=== PATIENT | male | born 2000 | race Caucasian/White ===

== ENCOUNTER 2020-03-23 17:00 | Inpatient (IN) ==
--- NOTE | 2020-03-23 17:14 | Emergency Department Note ---
History of Present Illness General Chief complaint: Urinary Symptoms Stated complaint: BROWN URINE - SORE MUSCLES Time Seen by Provider: 03/23/20 17:03 History of Present Illness Maximum Pain Intensity: 8 This is a 20-year-old male that presents to the emergency department via private vehicle with complaints of "brown urine, muscle ache". Patient notes that he participated in an intense workout this past . He notes that he perform any push-ups. Prior to that he had not worked out for quite some time. He was sore but then when he awoke the next day on Tuesday he noted a large amount of soreness within the biceps that has progressively moved towards the pectoralis region. The overall soreness is improving but today he notes now his urine is brown. He researched this and was concerned about rhabdomyolysis therefore prompting arrival here today. He denies any fevers, chills, chest pain or shortness of breath. Overall discomfort at this time is minimal. Home Medications Medication Instructions Recorded Confirmed Type No Known Home Medications 03/23/20 03/23/20 History Allergies Allergy/AdvReac Type Severity Reaction Status Date / Time No Known Allergies Allergy Verified 03/23/20 17:45 Past Med/Surg History Medical History No pertinent past medical history Surgical History No pertinent past surgical history Social History Smoking Status: Never smoker Feels Safe at Home: Yes Review of Systems A total of 10 systems reviewed and were otherwise negative Physical Exam Vital Signs Vital Signs - 24 hr 03/23/20 17:03 03/23/20 17:51 03/23/20 19:00 Temperature 36.5 C Temperature Source Oral Pulse Rate 87 Pulse Rate [Left Finger] 87 87 Respiratory Rate 16 18 18 Respiratory Effort / Characteristics Non-Labored Respiratory Depth Normal Blood Pressure 156/104 H Blood Pressure [Left Arm] 136/82 143/73 H Blood Pressure Mean 121 Blood Pressure Mean [Left Arm] 100 96 Pulse Oximetry 94 99 98 Oxygen Delivery Method Room Air Room Air Room Air Sepsis Recent Fever Within 48 Hours No Sepsis New/Unexplained Change in Mental Status N/A Sepsis Action Taken by Nursing No Action Required 03/23/20 20:32 Temperature Temperature Source Pulse Rate Pulse Rate [Left Finger] 88 Respiratory Rate 14 Respiratory Effort / Characteristics Respiratory Depth Normal Blood Pressure Blood Pressure [Left Arm] 134/97 Blood Pressure Mean Blood Pressure Mean [Left Arm] 109 Pulse Oximetry 98 Oxygen Delivery Method Room Air Sepsis Recent Fever Within 48 Hours Sepsis New/Unexplained Change in Mental Status Sepsis Action Taken by Nursing VITAL SIGNS - Vital signs and nursing notes were reviewed. Stable and afebrile. GENERAL -20-year-old male appearing his stated age who is in no acute distress. Communicates well with provider and answers questions appropriately. SKIN - Without rashes. No meningeal or petechial rash. HEAD - NC/AT. EYES - PERRL with EOMI bilaterally. Sclera anicteric. EARS - No deformities of external structures noted on gross examination bilaterally. NOSE - Midline and without cyanosis. No epistaxis or purulent drainage noted. MOUTH/OROPHARYNX - Without perioral cyanosis. NECK - Neck with FROM. No nuchal rigidity. LUNGS - Chest wall symmetric without accessory muscle use, intercostals retractions, or central cyanosis. Normal vesicular breath sounds CTA B/L. No wheezes, rales, or rhonchi appreciated. CARDIAC - RRR with S1/S2. No murmur, rubs, or gallops appreciated. EXTREMITIES - No clubbing or peripheral cyanosis. No pretibial edema present. Mild tenderness overlying the lateral pectoralis region and triceps. No evidence of compartment syndrome. +5/5 strength noted in UE/LE bilaterally. NEUROLOGIC - Cranial nerves II through XII grossly intact. PSYCH - A&Ox3 and cooperates fully with examiner. Pt is very pleasant and interacts well with examiner. Course Administered Medications Discontinued Medications Sodium Chloride (Nss 1000ml) 1,000 mls @ 999 mls/hr IV .Q1H1M MARK Stop: 03/23/20 18:15 Last Infusion: 03/23/20 18:44 Dose: 0 mls/hr Documented by: [id number] Admin: 03/23/20 17:43 Dose: 999 mls/hr Documented by: [id number] Sodium Chloride (Nss 1000ml) 1,000 mls @ 999 mls/hr IV .Q1H1M MARK Stop: 03/23/20 19:45 Last Infusion: 03/23/20 19:52 Dose: 0 mls/hr Documented by: [id number] Admin: 03/23/20 18:51 Dose: 999 mls/hr Documented by: [id number] Sodium Chloride (Nss) 500 mls @ 250 mls/hr IV .Q2H MARK Stop: 04/22/20 21:14 Last Admin: 03/23/20 22:10 Dose: 250 mls/hr Documented by: [id number] Medical Decision Making Laboratory Data Result diagrams: 03/23/20 17:35 03/23/20 17:35 Lab Results 03/23/20 03/23/20 03/23/20 Range/Units 17:35 17:35 17:35 WBC 9.56 (4.8-10.8) K/uL RBC 5.35 (4.7-6.1) M/uL Hgb 16.1 (14.0-18.0) g/dL Hct 44.6 (42-52) % MCV 83.4 (80-100) fL MCH 30.1 (25-34) pg MCHC 36.1 H (32-36) g/dL RDW Std Deviation 38.6 (36.4-46.3) fL RDW Coeff of Kenny 12.9 (11.5-14.5) % Plt Count 223 (130-400) K/uL MPV 10.8 H (7.4-10.4) fL Immature Gran % (Auto) 0.3 % Neut % (Auto) 65.4 % Lymph % (Auto) 25.4 % Nash % (Auto) 6.5 % Eos % (Auto) 2.3 % Baso % (Auto) 0.1 % Neut # (Auto) 6.25 (1.4-6.5) K/uL Lymph # (Auto) 2.43 (1.2-3.4) K/uL Nash # (Auto) 0.62 H (0.11-0.59) K/uL Eos # (Auto) 0.22 (0-0.5) K/uL Baso # (Auto) 0.01 (0-0.2) K/uL Immature Gran # (Auto) 0.03 H (0.00-0.02) K/uL PT (9.0-12.0) Seconds INR (0.9-1.1) APTT (21.0-31.0) Seconds PTT Ratio Sodium 138 (136-145) mmol/L Potassium 3.7 (3.5-5.1) mmol/L Chloride 105 (98-107) mmol/L Carbon Dioxide 25 (21-32) mmol/L Anion Gap 8.0 (3-11) BUN 16 (7-18) mg/dl Creatinine 1.29 (0.6-1.4) mg/dl Est Cr Clr Drug Dosing 89.8 ml/min Est GFR ( Amer) 90.6 Est GFR (Non-Af Amer) 78.2 BUN/Creatinine Ratio 12.6 (10-20) Glucose 105 H (70-99) mg/dl Calcium 9.5 (8.5-10.1) mg/dl Total Bilirubin 0.5 (0.2-1) mg/dl AST 1426 H (15-37) U/L ALT 313 H (12-78) U/L Alkaline Phosphatase 49 (45-117) U/L Total Creatine Kinase (39-308) U/L Total Protein 7.5 (6.4-8.2) gm/dl Albumin 4.0 (3.4-5.0) gm/dl Globulin 3.5 (2.5-4.0) gm/dl Albumin/Globulin Ratio 1.1 (0.9-2) Specimen Hemolysis Urine Color Yellow Urine Appearance Clear (Clear) Urine pH 5.5 (4.5-7.5) Ur Specific [place] 1.008 (1.000-1.030) Urine Protein Trace H (Negative) Urine Glucose (UA) Negative (Negative) Urine Ketones Negative (Negative) Urine Blood 3+ H (Negative) Urine Nitrite Negative (Negative) Urine Bilirubin Negative (Negative) Urine Urobilinogen Negative (Negative) Ur Leukocyte Esterase Negative (Negative) Urine WBC (Auto) 0 (0-5) /hpf Urine RBC (Auto) 0-4 (0-4) /hpf U Hyaline Cast (Auto) 0 (0-5) /lpf U Epithel Cells (Auto) 0-5 (0-5) /lpf Urine Bacteria (Auto) Negative (Negative) COVID-19 Eval Order SARS-CoV-2, RNA, NAAT (NEGATIVE) 03/23/20 03/23/20 03/23/20 Range/Units 17:45 19:08 20:34 WBC (4.8-10.8) K/uL RBC (4.7-6.1) M/uL Hgb (14.0-18.0) g/dL Hct (42-52) % MCV (80-100) fL MCH (25-34) pg MCHC (32-36) g/dL RDW Std Deviation (36.4-46.3) fL RDW Coeff of Kenny (11.5-14.5) % Plt Count (130-400) K/uL MPV (7.4-10.4) fL Immature Gran % (Auto) % Neut % (Auto) % Lymph % (Auto) % Nash % (Auto) % Eos % (Auto) % Baso % (Auto) % Neut # (Auto) (1.4-6.5) K/uL Lymph # (Auto) (1.2-3.4) K/uL Nash # (Auto) (0.11-0.59) K/uL Eos # (Auto) (0-0.5) K/uL Baso # (Auto) (0-0.2) K/uL Immature Gran # (Auto) (0.00-0.02) K/uL PT 10.7 (9.0-12.0) Seconds INR 1.1 (0.9-1.1) APTT 25.4 (21.0-31.0) Seconds PTT Ratio 1.0 Sodium (136-145) mmol/L Potassium (3.5-5.1) mmol/L Chloride (98-107) mmol/L Carbon Dioxide (21-32) mmol/L Anion Gap (3-11) BUN (7-18) mg/dl Creatinine (0.6-1.4) mg/dl Est Cr Clr Drug Dosing ml/min Est GFR ( Amer) Est GFR (Non-Af Amer) BUN/Creatinine Ratio (10-20) Glucose (70-99) mg/dl Calcium (8.5-10.1) mg/dl Total Bilirubin (0.2-1) mg/dl AST (15-37) U/L ALT (12-78) U/L Alkaline Phosphatase (45-117) U/L Total Creatine Kinase > 495582 H (39-308) U/L Total Protein (6.4-8.2) gm/dl Albumin (3.4-5.0) gm/dl Globulin (2.5-4.0) gm/dl Albumin/Globulin Ratio (0.9-2) Specimen Hemolysis Urine Color Urine Appearance (Clear) Urine pH (4.5-7.5) Ur Specific [place] (1.000-1.030) Urine Protein (Negative) Urine Glucose (UA) (Negative) Urine Ketones (Negative) Urine Blood (Negative) Urine Nitrite (Negative) Urine Bilirubin (Negative) Urine Urobilinogen (Negative) Ur Leukocyte Esterase (Negative) Urine WBC (Auto) (0-5) /hpf Urine RBC (Auto) (0-4) /hpf U Hyaline Cast (Auto) (0-5) /lpf U Epithel Cells (Auto) (0-5) /lpf Urine Bacteria (Auto) (Negative) COVID-19 Eval Order Covid19 IDNow atMNDC SARS-CoV-2, RNA, NAAT (NEGATIVE) 03/23/20 Range/Units 20:34 WBC (4.8-10.8) K/uL RBC (4.7-6.1) M/uL Hgb (14.0-18.0) g/dL Hct (42-52) % MCV (80-100) fL MCH (25-34) pg MCHC (32-36) g/dL RDW Std Deviation (36.4-46.3) fL RDW Coeff of Kenny (11.5-14.5) % Plt Count (130-400) K/uL MPV (7.4-10.4) fL Immature Gran % (Auto) % Neut % (Auto) % Lymph % (Auto) % Nash % (Auto) % Eos % (Auto) % Baso % (Auto) % Neut # (Auto) (1.4-6.5) K/uL Lymph # (Auto) (1.2-3.4) K/uL Nash # (Auto) (0.11-0.59) K/uL Eos # (Auto) (0-0.5) K/uL Baso # (Auto) (0-0.2) K/uL Immature Gran # (Auto) (0.00-0.02) K/uL PT (9.0-12.0) Seconds INR (0.9-1.1) APTT (21.0-31.0) Seconds PTT Ratio Sodium (136-145) mmol/L Potassium (3.5-5.1) mmol/L Chloride (98-107) mmol/L Carbon Dioxide (21-32) mmol/L Anion Gap (3-11) BUN (7-18) mg/dl Creatinine (0.6-1.4) mg/dl Est Cr Clr Drug Dosing ml/min Est GFR ( Amer) Est GFR (Non-Af Amer) BUN/Creatinine Ratio (10-20) Glucose (70-99) mg/dl Calcium (8.5-10.1) mg/dl Total Bilirubin (0.2-1) mg/dl AST (15-37) U/L ALT (12-78) U/L Alkaline Phosphatase (45-117) U/L Total Creatine Kinase (39-308) U/L Total Protein (6.4-8.2) gm/dl Albumin (3.4-5.0) gm/dl Globulin (2.5-4.0) gm/dl Albumin/Globulin Ratio (0.9-2) Specimen Hemolysis Urine Color Urine Appearance (Clear) Urine pH (4.5-7.5) Ur Specific [place] (1.000-1.030) Urine Protein (Negative) Urine Glucose (UA) (Negative) Urine Ketones (Negative) Urine Blood (Negative) Urine Nitrite (Negative) Urine Bilirubin (Negative) Urine Urobilinogen (Negative) Ur Leukocyte Esterase (Negative) Urine WBC (Auto) (0-5) /hpf Urine RBC (Auto) (0-4) /hpf U Hyaline Cast (Auto) (0-5) /lpf U Epithel Cells (Auto) (0-5) /lpf Urine Bacteria (Auto) (Negative) COVID-19 Eval Order SARS-CoV-2, RNA, NAAT NEGATIVE (NEGATIVE) MDM Narrative Patient was seen and evaluated as above in room A3. Review was performed of nursing notes and vital signs. After obtaining a thorough history and physical examination the above work up was performed. Patient presents to us today over concerns of rhabdomyolysis. Patient notes that he did participate in an intense workout this past . He had not worked out much prior to this in the recent past. On arrival he is nontoxic on examination. There is some tende rness to palpation overlying the triceps bilaterally and anterior chest region. With the patient noting today a dark discoloration to the urine I certainly agree with the patient's concern of rhabdomyolysis and therefore work-up began for such. IV access was established. Labs were drawn. Pending laboratory studies he was hydrated here intravenously. There is no leukocytosis or concerning anemia. No evidence of kidney failure. The patient does have elevation of AST and ALT as well as a total CK that is unfortunately greater than 100,000. This will require further evaluation and management in the inpatient setting. This does fit with the patient's clinical picture. Urinalysis does reveal trace protein, 3+ blood consistent with presentation. Covid testing negative. Case discussed with the attending physician, the hospitalist, as well as the patient's mother via phone after offering to speak with her and the patient consenting. All questions were answered. Patient happy with plan of care. While in the department, I personally reevaluated the patient several times and each time the patient was found to be resting comfortably. GCS: 15 In the evaluation and treatment of this patient the following differential diagnoses were entertained: Strain, sprain, rhabdomyolysis, Tylenol overdose, liver failure, dehydration, among others. Impression & Plan Rhabdomyolysis, Elevated LFTs Discharge Plan Visit Data Chief Complaint: Urinary Symptoms Stated Complaint: BROWN URINE - SORE MUSCLES ED Provider: Anthony Jackson ED Midlevel Provider: Valdez Ortega Discharge Problem: Rhabdomyolysis, Elevated LFTs Patient Disposition: Admitted As Inpatient Condition: Good Discharge Instructions Interventions: ED Discharge Assessment Last Done: 03/23/20 22:34
[2020-03-23] MEDS ORDERED: SODIUM CHLORIDE 0.9% 1000ML 1,000 ML IV SCH ×2 (17:15→18:45)
[2020-03-23 17:49] LABS: Basophils # (auto) 0.01 K/uL (0-0.2); Basophils % (auto) 0.1 %; Eosinophils # (auto) 0.22 K/uL (0-0.5); Eosinophils % (auto) 2.3 %; Hematocrit (blood only) 44.6 % (42-52); Hemoglobin 16.1 g/dL (14.0-18.0); Immature Granulocytes # (auto) 0.03 K/uL (0.00-0.02); Immature Granulocytes % (auto) 0.3 %; Lymphocytes # (auto) 2.43 K/uL (1.2-3.4); Lymphocytes % (auto) 25.4 %; Mean Corpuscular Hemoglobin 30.1 pg (25-34); Mean Corpuscular Hgb Conc 36.1 g/dL (32-36); Mean Corpuscular Volume 83.4 fL (80-100); Mean Platelet Volume 10.8 fL (7.4-10.4); Monocytes # (auto) 0.62 K/uL (0.11-0.59); Monocytes % (auto) 6.5 %; Neutrophils # (auto) 6.25 K/uL (1.4-6.5); Neutrophils % (auto) 65.4 %; Platelet Count 223 K/uL (130-400); RDW Coefficient of Variation 12.9 % (11.5-14.5); RDW Standard Deviation 38.6 fL (36.4-46.3); Red Blood Count 5.35 M/uL (4.7-6.1); White Blood Count 9.56 K/uL (4.8-10.8)
[2020-03-23 17:50] LABS: Appearance Urine Clear (Clear); Bacteria Urine Automated Negative (Negative); Bilirubin Urine Negative (Negative); Blood Urine 3+ (Negative); Cast Urine Automated 0 /lpf (0-5); Color Urine Yellow; Epithelial Cell Urine Auto 0-5 /lpf (0-5); Glucose Urine UA Negative (Negative); Ketones Urine Negative (Negative); Leukocyte Esterase Urine Negative (Negative); Nitrite Urine Negative (Negative); Protein Urine Trace (Negative); RBC Urine Automated 0-4 /hpf (0-4); Specific Gravity Urine 1.008 (1.000-1.030); Urobilinogen Urine Negative (Negative); WBC Urine Automated 0 /hpf (0-5); pH Urine 5.5 (4.5-7.5)
[2020-03-23 18:11] LABS: BUN Creatinine Ratio 12.6 (10-20); Calcium 9.5 mg/dl (8.5-10.1); Creatinine Clr Calc Pharmacy 89.8 ml/min; Est GFR (African American) 90.6; Est GFR (Non-African American) 78.2; Potassium 3.7 mmol/L (3.5-5.1)
[2020-03-23 18:45] LABS: Albumin Globulin Ratio 1.1 (0.9-2); Bilirubin,Total 0.5 mg/dl (0.2-1); Globulin 3.5 gm/dl (2.5-4.0); Total Protein 7.5 gm/dl (6.4-8.2)
[2020-03-23 21:00] LABS: INR 1.1 (0.9-1.1); Partial Thromboplastin Time 25.4 Seconds (21.0-31.0); Prothrombin Time 10.7 Seconds (9.0-12.0)
--- NOTE | 2020-03-23 21:06 | History & Physical Report ---
Date of Service March 23, 2020 Assessment & Plan (1) Rhabdomyolysis: 20-year-old male no significant past medical history admitted for rhabdomyolysis with elevated LFTs. Rhabdomyolysis: CK > 100,000 on admission labs. Aggressive fluid resuscitation, NSS @ 250cc/hr, titrate to urine output. Repeat CBC, CMP, CK in the morning. Continue to monitor for signs of compartment syndrome. Continuous cardiac monitoring. In sinus rhythm since arrival to ER. Elevated LFTs: On admission with AST 1426, ALT 313, normal total bilirubin and alk phos. This is likely in the setting of acute rhabdomyolysis, continue to trend and if not continuing to improve can consider further work-up. CODE STATUS: Full code FEN/GI: Regular diet, NSS at 250 cc/hr DVT prophylaxis: Low risk given age, ad toyin. as tolerated and SCDs in bed Dispo: Medical floor with telemetry for continuous cardiac monitoring in the setting of acute rhabdomyolysis (2) Elevated LFTs: History of Present Illness Chief Complaint: Muscle aches, brown urine Primary Care Provider: [facility] 20-year-old male with no significant past medical history presents for muscle aches since with notes of brown urine this morning. Reports that on he did several reps of [place] [id number] [place]. Woke up the following morning sore in his arms and pec area. This morning woke up with brown color to his urine and worsening muscle aches, prompting his ER evaluation. He admits that this was the first workout he had done in several months due to COVID-19 pandemic. He does not endorse use of any supplements. In the ER, patient was found to have elevated LFTs, CK > 100,000, creatinine 1.29, normal coags. On interview patient denies chest pain, shortness of breath, nausea or vomiting, diarrhea, dysuria, dizziness or lightheadedness, headache. Allergies Allergy/AdvReac Type Severity Reaction Status Date / Time No Known Allergies Allergy Verified 03/23/20 17:45 Home Medications Medication Instructions Recorded Confirmed Type No Known Home Medications 03/23/20 03/23/20 History Past Med/Surg History Medical History No pertinent past medical history Surgical History No pertinent past surgical history Social History Smoking Status: Unknown if ever smoked Hx Alcohol Use: No Hx Substance Use: No Preferred Language: Estonian Communication Ability: Effective Finishing Range Feeder Required: No Beliefs That Will Affect Care: None Current Living Situation: Alone Feels Safe at Home: Yes Assistive Devices: None Review of Systems Review of Systems: All systems reviewed & are unremarkable except as noted in HPI & below Constitutional: no fever, no chills and no malaise Respiratory: no cough and no dyspnea Cardiovascular: no chest pain, no palpitations and no edema Gastrointestinal: no abdominal pain, no constipation and no diarrhea/loose stools Physical Exam Constitutional: WD/WN, vitals as above Eyes: PERRL, conjunctivae normal, anicteric sclerae ENMT: external ear and nose normal, oropharynx normal Neck: normal visual inspection Respiratory: normal respiratory effort, lungs clear to auscultation Cardiovascular: RRR, no murmur, no edema Gastrointestinal (Abdomen): normal bowel sounds, soft, nontender, no hepatosplenomegaly Musculoskeletal: no cyanosis or clubbing, extremities motor strength 5/5 Skin: no rashes, warm and dry (No findings on exam suggestive of compartment syndrome) Neurologic: AAOx3, normal speech. Bilateral UE, LE, and face without sensory or motor deficits. No tremor. Psychiatric: A+Ox3, euthymic affect Results & Data Results & Data ([facility] [place]) Vital Signs (Past 12 Hours) Vital Signs Temp Pulse Pulse Resp BP BP Pulse Ox 03/23/20 20:32 88 14 134/97 98 03/23/20 19:00 87 18 143/73 H 98 03/23/20 17:51 87 18 136/82 99 03/23/20 17:03 36.5 C 87 16 156/104 H 94 Code Status & VTE Plan VTE Prophylaxis Plan VTE Prophylaxis will be ordered: Yes Supervising Physician Co-Signing Physician Notes Attending addendum: I have physically seen this patient, have supervised the medical residents activities, and agree with the H&P unless as otherwise noted. Assessment and Plan: Rhabdomyolysis- CK >100,000 upon admission Continue IV fluid rehydration with NSS at 250 cc/h Follow serial CMP, magnesium and CK levels. Transaminitis- Likely secondary to rhabdomyolysis. AST 1426, ALT 313 upon admission. Follow serial laboratories with rehydration Remaining orders and notations as noted Resident Activity Tracking Resident Involvement: Resident Care Provided Care Provided: Adult [facility]
[2020-03-23] MEDS: SODIUM CHLORIDE 0.9% 500 ML IV SCH (22:10)
[2020-03-23] MEDS ORDERED: ONDANSETRON INJ 2 MG/ML 2 ML VIAL IV PRN (23:31)
[2020-03-24] MEDS ORDERED: Nursing to Pharmacy Communication SCH (00:15)
[2020-03-24] MEDS: SODIUM CHLORIDE 0.9% 500 ML IV SCH (02:08)
[2020-03-24] MEDS: SODIUM CHLORIDE 0.9% 1000ML 1,000 ML IV SCH ×6 (02:40→22:10)
[2020-03-24 06:15] LABS: Hematocrit (blood only) 41.9 % (42-52); Hemoglobin 14.9 g/dL (14.0-18.0); Mean Corpuscular Hemoglobin 29.9 pg (25-34); Mean Corpuscular Hgb Conc 35.6 g/dL (32-36); Mean Corpuscular Volume 84.1 fL (80-100); Mean Platelet Volume 10.9 fL (7.4-10.4); Platelet Count 204 K/uL (130-400); RDW Coefficient of Variation 12.9 % (11.5-14.5); RDW Standard Deviation 39.2 fL (36.4-46.3); Red Blood Count 4.98 M/uL (4.7-6.1); White Blood Count 7.46 K/uL (4.8-10.8)
[2020-03-24 06:28] LABS: INR 1.1 (0.9-1.1); Prothrombin Time 10.9 Seconds (9.0-12.0)
[2020-03-24 06:48] LABS: Albumin Level 3.5 gm/dl (3.4-5.0); Creatinine Clr Calc Pharmacy 120.7 ml/min; Est GFR (African American) 129.5; Est GFR (Non-African American) 111.8; Potassium 3.9 mmol/L (3.5-5.1)
[2020-03-24 07:28] LABS: Albumin Globulin Ratio 1.2 (0.9-2); Bilirubin,Total 0.4 mg/dl (0.2-1); Globulin 2.8 gm/dl (2.5-4.0); Total Protein 6.3 gm/dl (6.4-8.2)
--- NOTE | 2020-03-24 08:10 | Hospitalist Progress Note ---
Date of Service March 24, 2020 Assessment & Plan (1) Rhabdomyolysis: 20-year-old male no significant past medical history admitted for rhabdomyolysis with elevated LFTs. Rhabdomyolysis: * CK > 100,000 on admission labs * Multiple NSS bolus * Repeat today with CK 92,448 * Continue NSS @ 250cc/hr * Encourage PO fluid intake * UO 0.89ml/kg/hr * No signs compartment syndrome currently -- continue to monitor * Consider downgrade to medical tomorrow as telemetry unremarkable, but will keep on overnight * Repeat CBC, CMP, CK in the morning. Elevated LFTs: * On admission with AST 1426, ALT 313, normal total bilirubin and alk phos. * Trending down as rhabdo improving -- AST 1206, ALT 291, alk phos 43 * Continue to monitor on AM labs * This is likely in the setting of acute rhabdomyolysis, continue to trend and if not continuing to improve can consider further work-up. DVT prophylaxis: Low risk given age -- encouraged ambulation SCDs while in bed Dispo: Medical floor with telemetry for continuous cardiac monitoring in the setting of acute rhabdomyolysis. continue inpatient stay (2) Elevated LFTs: Admission and Anticipated Discharge Date Admission Date: March 23, 2020 Subjective Patient evaluated this morning. Feeling well. Does have some muscle tightness/aching to shoulders (primarily right shoulder) with movements. No numbness/tingling currently. Not needing anything for pain. Eating/drinking without issue. Discussed pushing oral fluids. He is aware to have restrictions for exercise at discharge. Moving bowels. Urinating without issue. 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 No fever, chills, chest pain,shortness of breath at this time. 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 No need for note at this time but will need at discharge and will let us know if he needs anything prior to that. Review of Systems Review of Systems: All systems reviewed & are unremarkable except as noted in HPI & below Physical Exam Constitutional: WD/WN, vitals as above comfortable; no acute distress Eyes: + anicteric sclerae and PERRL Neck: normal visual inspection and trachea midline Respiratory: normal respiratory effort, lungs clear to auscultation Cardiovascular: RRR, no murmur, no edema Gastrointestinal (Abdomen): normal bowel sounds, soft, nontender, no hepatosplenomegaly Musculoskeletal: no cyanosis or clubbing, extremities motor strength 5/5 Skin: warm, dry Neurologic: moves all extremities and awake sensation intact Psychiatric: A+Ox3, euthymic affect Results & Data Results & Data ([facility]) Vital Signs (Past 12 Hours) Vital Signs Temp Pulse Resp BP Pulse Ox 03/24/20 07:28 36.5 C 74 18 126/78 97 03/24/20 03:01 36.8 C 77 18 123/75 98 03/23/20 22:08 88 18 143/81 H 98 03/23/20 20:32 88 14 134/97 98 Laboratory Results 03/24/20 03/24/20 03/24/20 Range/Units 05:54 05:54 05:54 WBC 7.46 (4.8-10.8) K/uL RBC 4.98 (4.7-6.1) M/uL Hgb 14.9 (14.0-18.0) g/dL Hct 41.9 L (42-52) % MCV 84.1 (80-100) fL MCH 29.9 (25-34) pg MCHC 35.6 (32-36) g/dL RDW Std Deviation 39.2 (36.4-46.3) fL RDW Coeff of Kenny 12.9 (11.5-14.5) % Plt Count 204 (130-400) K/uL MPV 10.9 H (7.4-10.4) fL Immature Gran % (Auto) % Neut % (Auto) % Lymph % (Auto) % Mcmullen % (Auto) % Eos % (Auto) % Baso % (Auto) % Neut # (Auto) (1.4-6.5) K/uL Lymph # (Auto) (1.2-3.4) K/uL Mcmullen # (Auto) (0.11-0.59) K/uL Eos # (Auto) (0-0.5) K/uL Baso # (Auto) (0-0.2) K/uL Immature Gran # (Auto) (0.00-0.02) K/uL PT 10.9 (9.0-12.0) Seconds INR 1.1 (0.9-1.1) APTT (21.0-31.0) Seconds PTT Ratio Sodium 143 (136-145) mmol/L Potassium 3.9 (3.5-5.1) mmol/L Chloride 111 H (98-107) mmol/L Carbon Dioxide 26 (21-32) mmol/L Anion Gap 6.0 (3-11) BUN 12 (7-18) mg/dl Creatinine 0.96 D (0.6-1.4) mg/dl Est Cr Clr Drug Dosing 120.7 ml/min Est GFR ( Amer) 129.5 Est GFR (Non-Af Amer) 111.8 BUN/Creatinine Ratio 12.0 (10-20) Glucose 86 (70-99) mg/dl Calcium 9.0 (8.5-10.1) mg/dl Total Bilirubin 0.4 (0.2-1) mg/dl AST 1206 H (15-37) U/L ALT 291 H (12-78) U/L Alkaline Phosphatase 43 L (45-117) U/L Total Creatine Kinase 22654 H (39-308) U/L Total Protein 6.3 L (6.4-8.2) gm/dl Albumin 3.5 (3.4-5.0) gm/dl Globulin 2.8 (2.5-4.0) gm/dl Albumin/Globulin Ratio 1.2 (0.9-2) Specimen Hemolysis Urine Color Urine Appearance (Clear) Urine pH (4.5-7.5) Ur Specific [place] (1.000-1.030) Urine Protein (Negative) Urine Glucose (UA) (Negative) Urine Ketones (Negative) Urine Blood (Negative) Urine Nitrite (Negative) Urine Bilirubin (Negative) Urine Urobilinogen (Negative) Ur Leukocyte Esterase (Negative) Urine WBC (Auto) (0-5) /hpf Urine RBC (Auto) (0-4) /hpf U Hyaline Cast (Auto) (0-5) /lpf U Epithel Cells (Auto) (0-5) /lpf Urine Bacteria (Auto) (Negative) COVID-19 Eval Order SARS-CoV-2, RNA, NAAT (NEGATIVE) 03/23/20 03/23/20 03/23/20 Range/Units 20:34 20:34 19:08 WBC (4.8-10.8) K/uL RBC (4.7-6.1) M/uL Hgb (14.0-18.0) g/dL Hct (42-52) % MCV (80-100) fL MCH (25-34) pg MCHC (32-36) g/dL RDW Std Deviation (36.4-46.3) fL RDW Coeff of Kenny (11.5-14.5) % Plt Count (130-400) K/uL MPV (7.4-10.4) fL Immature Gran % (Auto) % Neut % (Auto) % Lymph % (Auto) % Mcmullen % (Auto) % Eos % (Auto) % Baso % (Auto) % Neut # (Auto) (1.4-6.5) K/uL Lymph # (Auto) (1.2-3.4) K/uL Mcmullen # (Auto) (0.11-0.59) K/uL Eos # (Auto) (0-0.5) K/uL Baso # (Auto) (0-0.2) K/uL Immature Gran # (Auto) (0.00-0.02) K/uL PT (9.0-12.0) Seconds INR (0.9-1.1) APTT (21.0-31.0) Seconds PTT Ratio Sodium (136-145) mmol/L Potassium (3.5-5.1) mmol/L Chloride (98-107) mmol/L Carbon Dioxide (21-32) mmol/L Anion Gap (3-11) BUN (7-18) mg/dl Creatinine (0.6-1.4) mg/dl Est Cr Clr Drug Dosing ml/min Est GFR ( Amer) Est GFR (Non-Af Amer) BUN/Creatinine Ratio (10-20) Glucose (70-99) mg/dl Calcium (8.5-10.1) mg/dl Total Bilirubin (0.2-1) mg/dl AST (15-37) U/L ALT (12-78) U/L Alkaline Phosphatase (45-117) U/L Total Creatine Kinase > 696254 H (39-308) U/L Total Protein (6.4-8.2) gm/dl Albumin (3.4-5.0) gm/dl Globulin (2.5-4.0) gm/dl Albumin/Globulin Ratio (0.9-2) Specimen Hemolysis Urine Color Urine Appearance (Clear) Urine pH (4.5-7.5) Ur Specific [place] (1.000-1.030) Urine Protein (Negative) Urine Glucose (UA) (Negative) Urine Ketones (Negative) Urine Blood (Negative) Urine Nitrite (Negative) Urine Bilirubin (Negative) Urine Urobilinogen (Negative) Ur Leukocyte Esterase (Negative) Urine WBC (Auto) (0-5) /hpf Urine RBC (Auto) (0-4) /hpf U Hyaline Cast (Auto) (0-5) /lpf U Epithel Cells (Auto) (0-5) /lpf Urine Bacteria (Auto) (Negative) COVID-19 Eval Order Covid19 [facility] SARS-CoV-2, RNA, NAAT NEGATIVE (NEGATIVE) 03/23/20 03/23/20 03/23/20 Range/Units 17:45 17:35 17:35 WBC (4.8-10.8) K/uL RBC (4.7-6.1) M/uL Hgb (14.0-18.0) g/dL Hct (42-52) % MCV (80-100) fL MCH (25-34) pg MCHC (32-36) g/dL RDW Std Deviation (36.4-46.3) fL RDW Coeff of Kenny (11.5-14.5) % Plt Count (130-400) K/uL MPV (7.4-10.4) fL Immature Gran % (Auto) % Neut % (Auto) % Lymph % (Auto) % Mcmullen % (Auto) % Eos % (Auto) % Baso % (Auto) % Neut # (Auto) (1.4-6.5) K/uL Lymph # (Auto) (1.2-3.4) K/uL Mcmullen # (Auto) (0.11-0.59) K/uL Eos # (Auto) (0-0.5) K/uL Baso # (Auto) (0-0.2) K/uL Immature Gran # (Auto) (0.00-0.02) K/uL PT 10.7 (9.0-12.0) Seconds INR 1.1 (0.9-1.1) APTT 25.4 (21.0-31.0) Seconds PTT Ratio 1.0 Sodium 138 (136-145) mmol/L Potassium 3.7 (3.5-5.1) mmol/L Chloride 105 (98-107) mmol/L Carbon Dioxide 25 (21-32) mmol/L Anion Gap 8.0 (3-11) BUN 16 (7-18) mg/dl Creatinine 1.29 (0.6-1.4) mg/dl Est Cr Clr Drug Dosing 89.8 ml/min Est GFR ( Amer) 90.6 Est GFR (Non-Af Amer) 78.2 BUN/Creatinine Ratio 12.6 (10-20) Glucose 105 H (70-99) mg/dl Calcium 9.5 (8.5-10.1) mg/dl Total Bilirubin 0.5 (0.2-1) mg/dl AST 1426 H (15-37) U/L ALT 313 H (12-78) U/L Alkaline Phosphatase 49 (45-117) U/L Total Creatine Kinase (39-308) U/L Total Protein 7.5 (6.4-8.2) gm/dl Albumin 4.0 (3.4-5.0) gm/dl Globulin 3.5 (2.5-4.0) gm/dl Albumin/Globulin Ratio 1.1 (0.9-2) Specimen Hemolysis Urine Color Yellow Urine Appearance Clear (Clear) Urine pH 5.5 (4.5-7.5) Ur Specific [place] 1.008 (1.000-1.030) Urine Protein Trace H (Negative) Urine Glucose (UA) Negative (Negative) Urine Ketones Negative (Negative) Urine Blood 3+ H (Negative) Urine Nitrite Negative (Negative) Urine Bilirubin Negative (Negative) Urine Urobilinogen Negative (Negative) Ur Leukocyte Esterase Negative (Negative) Urine WBC (Auto) 0 (0-5) /hpf Urine RBC (Auto) 0-4 (0-4) /hpf U Hyaline Cast (Auto) 0 (0-5) /lpf U Epithel Cells (Auto) 0-5 (0-5) /lpf Urine Bacteria (Auto) Negative (Negative) COVID-19 Eval Order SARS-CoV-2, RNA, NAAT (NEGATIVE) 03/23/20 Range/Units 17:35 WBC 9.56 (4.8-10.8) K/uL RBC 5.35 (4.7-6.1) M/uL Hgb 16.1 (14.0-18.0) g/dL Hct 44.6 (42-52) % MCV 83.4 (80-100) fL MCH 30.1 (25-34) pg MCHC 36.1 H (32-36) g/dL RDW Std Deviation 38.6 (36.4-46.3) fL RDW Coeff of Kenny 12.9 (11.5-14.5) % Plt Count 223 (130-400) K/uL MPV 10.8 H (7.4-10.4) fL Immature Gran % (Auto) 0.3 % Neut % (Auto) 65.4 % Lymph % (Auto) 25.4 % Mcmullen % (Auto) 6.5 % Eos % (Auto) 2.3 % Baso % (Auto) 0.1 % Neut # (Auto) 6.25 (1.4-6.5) K/uL Lymph # (Auto) 2.43 (1.2-3.4) K/uL Mcmullen # (Auto) 0.62 H (0.11-0.59) K/uL Eos # (Auto) 0.22 (0-0.5) K/uL Baso # (Auto) 0.01 (0-0.2) K/uL Immature Gran # (Auto) 0.03 H (0.00-0.02) K/uL PT (9.0-12.0) Seconds INR (0.9-1.1) APTT (21.0-31.0) Seconds PTT Ratio Sodium (136-145) mmol/L Potassium (3.5-5.1) mmol/L Chloride (98-107) mmol/L Carbon Dioxide (21-32) mmol/L Anion Gap (3-11) BUN (7-18) mg/dl Creatinine (0.6-1.4) mg/dl Est Cr Clr Drug Dosing ml/min Est GFR ( Amer) Est GFR (Non-Af Amer) BUN/Creatinine Ratio (10-20) Glucose (70-99) mg/dl Calcium (8.5-10.1) mg/dl Total Bilirubin (0.2-1) mg/dl AST (15-37) U/L ALT (12-78) U/L Alkaline Phosphatase (45-117) U/L Total Creatine Kinase (39-308) U/L Total Protein (6.4-8.2) gm/dl Albumin (3.4-5.0) gm/dl Globulin (2.5-4.0) gm/dl Albumin/Globulin Ratio (0.9-2) Specimen Hemolysis Urine Color Urine Appearance (Clear) Urine pH (4.5-7.5) Ur Specific [place] (1.000-1.030) Urine Protein (Negative) Urine Glucose (UA) (Negative) Urine Ketones (Negative) Urine Blood (Negative) Urine Nitrite (Negative) Urine Bilirubin (Negative) Urine Urobilinogen (Negative) Ur Leukocyte Esterase (Negative) Urine WBC (Auto) (0-5) /hpf Urine RBC (Auto) (0-4) /hpf U Hyaline Cast (Auto) (0-5) /lpf U Epithel Cells (Auto) (0-5) /lpf Urine Bacteria (Auto) (Negative) COVID-19 Eval Order SARS-CoV-2, RNA, NAAT (NEGATIVE) PG Care Time/CCT Total # of Minutes Spent Total Time Spent with Patient: Total time spent is greater than 50% in coordination of care (as documented) at patient's floor/unit and/or counseling patient: Coding Level of Care Code 14057 Subseq Hosp Care Lvl 2 Diagnoses Rhabdomyolysis M62.82 Elevated LFTs R79.89
--- NOTE | 2020-03-24 09:14 | Electrocardiogram Report ---
Test Reason : Blood Pressure : / mmHG Vent. Rate : 074 BPM Atrial Rate : 074 BPM P-R Int : 154 ms QRS Dur : 096 ms QT Int : 384 ms P-R-T Axes : 072 088 076 degrees QTc Int : 426 ms Normal sinus rhythm with sinus arrhythmia Minor ST elevation, most consistent with repolarization variant Normal ECG No previous ECGs available Confirmed by French Bourgeois ([id number]) on 03/24/2020 9:13:43 AM Referred By: REFERRED SELF Confirmed By:French Bourgeois
[2020-03-24] MEDS ORDERED: ACETAMINOPHEN 325 MG TAB PO PRN (14:41)
[2020-03-25] MEDS: SODIUM CHLORIDE 0.9% 1000ML 1,000 ML IV SCH ×6 (01:51→20:39)
[2020-03-25 06:40] LABS: Hematocrit (blood only) 42.1 % (42-52); Hemoglobin 14.8 g/dL (14.0-18.0); Mean Corpuscular Hemoglobin 29.5 pg (25-34); Mean Corpuscular Hgb Conc 35.2 g/dL (32-36); Platelet Count 214 K/uL (130-400); RDW Standard Deviation 39.3 fL (36.4-46.3); Red Blood Count 5.01 M/uL (4.7-6.1); White Blood Count 6.64 K/uL (4.8-10.8)
[2020-03-25 07:12] LABS: Alanine Aminotransferase 334 U/L (12-78); Albumin Level 3.4 gm/dl (3.4-5.0); BUN Creatinine Ratio 10.3 (10-20); Bilirubin Direct < 0.1 mg/dl (0-0.2); Blood Urea Nitrogen 9 mg/dl (7-18); Carbon Dioxide 25 mmol/L (21-32); Chloride 112 mmol/L (98-107); Creatinine Clr Calc Pharmacy 127.3 ml/min; Est GFR (African American) 138.2; Est GFR (Non-African American) 119.2; Glucose 87 mg/dl (70-99); Potassium 3.8 mmol/L (3.5-5.1); Sodium 143 mmol/L (136-145)
[2020-03-25 07:40] LABS: Alkaline Phosphatase 43 U/L (45-117); Aspartate Aminotransferase 1144 U/L (15-37); Bilirubin,Total 0.3 mg/dl (0.2-1); Total Protein 6.3 gm/dl (6.4-8.2)
--- NOTE | 2020-03-25 07:44 | Hospitalist Progress Note ---
Date of Service March 25, 2020 Assessment & Plan (1) Rhabdomyolysis: 20-year-old male no significant past medical history admitted for rhabdomyolysis with elevated LFTs. Rhabdomyolysis: * CK > 100,000 on admission labs * Multiple NSS bolus * Repeat today with CK 92,448 --> now 07411 * Continue NSS @ 250cc/hr. Encouraged pushing PO fluid intake * UO acceptable but has been having multiple unmeasured voids. Creatinine stable * No signs compartment syndrome currently -- continue to monitor * NSR on telemetry -- will downgrade to medical today * Repeat CBC, CMP, CK in the morning * Of note, he would like d/c yogi -- can discuss repeat labs later this week if adamant about d/c tomorrow Elevated LFTs: * On admission with AST 1426, ALT 313, normal total bilirubin and alk phos. * Trending down as rhabdo improving -- AST 1144, alk phos 43 although ALT still elevated at 334 * Continue to monitor on AM labs * This is likely in the setting of acute rhabdomyolysis, continue to trend and if not continuing to improve can consider further work-up. Monitor on AM labs and will order additional studies if continues to remain elevated DVT prophylaxis: Low risk given age -- encouraged ambulation SCDs while in bed Dispo:continued inpatient stay (2) Elevated LFTs: Admission and Anticipated Discharge Date Admission Date: March 23, 2020 Subjective Patient evaluated this morning. Feeling better. Urine clear/light yellow in color and making copious amounts. Increased range of motion and decreased pain/aches to his joints, with primary affected area left shoulder. Discussed continuing to push oral intake but that CK still significantly elevated. He voices want for discharge as soon as possible but is agreeable to stay overnight with repeat labs in AM. If CK continues to make improvement and liver functions stabilize, can consider discharge possible tomorrow with repeat labs at [facility] later this week. Review of Systems Review of Systems: All systems reviewed & are unremarkable except as noted in HPI & below Physical Exam Constitutional: WD/WN, vitals as above comfortable; no acute distress Eyes: + anicteric sclerae and PERRL ENMT: mmm Neck: normal visual inspection and trachea midline Respiratory: normal respiratory effort, lungs clear to auscultation Cardiovascular: RRR, no murmur, no edema Gastrointestinal (Abdomen): normal bowel sounds, soft, nontender, no hepatosplenomegaly Musculoskeletal: no cyanosis or clubbing, extremities motor strength 5/5 Neurologic: moves all extremities and awake Psychiatric: A+Ox3, euthymic affect Results & Data Results & Data ([facility]) Vital Signs (Past 12 Hours) Vital Signs Temp Pulse Pulse Resp BP Pulse Ox 03/25/20 07:14 36.5 C 79 20 132/78 98 03/25/20 04:00 36.6 C 73 18 141/73 H 100 03/24/20 23:15 86 03/24/20 23:00 36.7 C 67 18 139/80 99 Laboratory Results 03/25/20 03/25/20 Range/Units 06:03 06:03 WBC 6.64 (4.8-10.8) K/uL RBC 5.01 (4.7-6.1) M/uL Hgb 14.8 (14.0-18.0) g/dL Hct 42.1 (42-52) % MCV 84.0 (80-100) fL MCH 29.5 (25-34) pg MCHC 35.2 (32-36) g/dL RDW Std Deviation 39.3 (36.4-46.3) fL RDW Coeff of Kenny 13.0 (11.5-14.5) % Plt Count 214 (130-400) K/uL MPV 11.0 H (7.4-10.4) fL Sodium 143 (136-145) mmol/L Potassium 3.8 (3.5-5.1) mmol/L Chloride 112 H (98-107) mmol/L Carbon Dioxide 25 (21-32) mmol/L Anion Gap 7.0 (3-11) BUN 9 (7-18) mg/dl Creatinine 0.91 (0.6-1.4) mg/dl Est Cr Clr Drug Dosing 127.3 ml/min Est GFR ( Amer) 138.2 Est GFR (Non-Af Amer) 119.2 BUN/Creatinine Ratio 10.3 (10-20) Glucose 87 (70-99) mg/dl Calcium 9.0 (8.5-10.1) mg/dl Total Bilirubin 0.3 (0.2-1) mg/dl Direct Bilirubin < 0.1 (0-0.2) mg/dl AST 1144 H (15-37) U/L ALT 334 H (12-78) U/L Alkaline Phosphatase 43 L (45-117) U/L Total Creatine Kinase 00279 H (39-308) U/L Total Protein 6.3 L (6.4-8.2) gm/dl Albumin 3.4 (3.4-5.0) gm/dl PG Care Time/CCT Total # of Minutes Spent Total Time Spent with Patient: Total time spent is greater than 50% in coordination of care (as documented) at patient's floor/unit and/or counseling patient: Coding Level of Care Code 14751 Subseq Hosp Care Lvl 2 Diagnoses Rhabdomyolysis M62.82 Elevated LFTs R79.89
[2020-03-25 08:29] LABS: Creatine Kinase 77319 U/L (39-308)
--- NOTE | 2020-03-25 09:46 | Electrocardiogram Report ---
Test Reason : Blood Pressure : / mmHG Vent. Rate : 071 BPM Atrial Rate : 071 BPM P-R Int : 190 ms QRS Dur : 094 ms QT Int : 384 ms P-R-T Axes : 059 075 043 degrees QTc Int : 417 ms Sinus rhythm with marked sinus arrhythmia Minor ST elevation, most consistent with repolarization variant Otherwise normal ECG When compared with ECG of 24-MAR-2020 07:23, No significant change was found Confirmed by French Bourgeois ([id number]) on 03/25/2020 9:46:40 AM Referred By: REFERRED SELF Confirmed By:French Bourgeois
[2020-03-26] MEDS: SODIUM CHLORIDE 0.9% 1000ML 1,000 ML IV SCH ×2 (00:46→05:41)
[2020-03-26 05:39] LABS: Hematocrit (blood only) 43.3 % (42-52); Hemoglobin 15.3 g/dL (14.0-18.0); Mean Corpuscular Hemoglobin 29.7 pg (25-34); Mean Corpuscular Hgb Conc 35.3 g/dL (32-36); Mean Corpuscular Volume 83.9 fL (80-100); Mean Platelet Volume 10.8 fL (7.4-10.4); Platelet Count 188 K/uL (130-400); RDW Coefficient of Variation 12.8 % (11.5-14.5); RDW Standard Deviation 38.5 fL (36.4-46.3); Red Blood Count 5.16 M/uL (4.7-6.1); White Blood Count 7.85 K/uL (4.8-10.8)
[2020-03-26 06:11] LABS: Alanine Aminotransferase 317 U/L (12-78); Albumin Level 3.3 gm/dl (3.4-5.0); Aspartate Aminotransferase 798 U/L (15-37); BUN Creatinine Ratio 11.2 (10-20); Bilirubin Direct < 0.1 mg/dl (0-0.2); Blood Urea Nitrogen 11 mg/dl (7-18); Calcium 8.7 mg/dl (8.5-10.1); Carbon Dioxide 28 mmol/L (21-32); Chloride 112 mmol/L (98-107); Creatinine Clr Calc Pharmacy 119.5 ml/min; Est GFR (African American) 127.9; Est GFR (Non-African American) 110.4; Glucose 84 mg/dl (70-99); Potassium 3.9 mmol/L (3.5-5.1); Sodium 146 mmol/L (136-145)
[2020-03-26 06:37] LABS: Alkaline Phosphatase 42 U/L (45-117); Bilirubin,Total 0.2 mg/dl (0.2-1); Total Protein 6.3 gm/dl (6.4-8.2)
[2020-03-26 08:00] LABS: Creatine Kinase 43183 U/L (39-308)
--- NOTE | 2020-03-26 08:19 | Discharge Summary ---
Date of Service March 26, 2020 Admission HPI Per Admitting Provider 20-year-old male with no significant past medical history presents for muscle aches since with notes of brown urine this morning. Reports that on he did several reps of push-[place] [address] push-[place]. Woke up the following morning sore in his arms and pec area. This morning woke up with brown color to his urine and worsening muscle aches, prompting his ER evaluation. He admits that this was the first workout he had done in several months due to COVID-19 pandemic. He does not endorse use of any supplements. In the ER, patient was found to have elevated LFTs, CK > 100,000, creatinine 1.29, normal coags. On interview patient denies chest pain, shortness of breath, nausea or vomiting, diarrhea, dysuria, dizziness or lightheadedness, headache. Admission Exam Per Admitting Provider Constitutional: WD/WN, vitals as above Eyes: PERRL, conjunctivae normal, anicteric sclerae ENMT: external ear and nose normal, oropharynx normal Neck: normal visual inspection Respiratory: normal respiratory effort, lungs clear to auscultation Cardiovascular: RRR, no murmur, no edema Gastrointestinal (Abdomen): normal bowel sounds, soft, nontender, no hepatosplenomegaly Musculoskeletal: no cyanosis or clubbing, extremities motor strength 5/5 Skin: no rashes, warm and dry (No findings on exam suggestive of compartment syndrome) Neurologic: AAOx3, normal speech. Bilateral UE, LE, and face without sensory or motor deficits. No tremor. Psychiatric: A+Ox3, euthymic affect Principal Diagnosis Rhabdomyolysis Discharge Exam Constitutional WD/WN, vitals as above comfortable; no acute distress Eyes + anicteric sclerae and PERRL ENMT mmm Neck normal visual inspection and trachea midline Respiratory normal respiratory effort, lungs clear to auscultation Cardiovascular RRR, no murmur, no edema Gastrointestinal (Abdomen) normal bowel sounds, soft, nontender, no hepatosplenomegaly Musculoskeletal no cyanosis or clubbing, extremities motor strength 5/5 Skin no rashes, warm and dry Neurologic moves all extremities and awake Psychiatric A+Ox3, euthymic affect Lymphatic no cervical or axillary lymphadenopathy Discharge Data Allergies Allergy/AdvReac Type Severity Reaction Status Date / Time No Known Allergies Allergy Verified 03/23/20 17:45 Consultations 03/23/20 20:17 ED Decision to Admit Stat Hospital Course (1) Rhabdomyolysis: 20-year-old male no significant past medical history admitted for rhabdomyolysis with elevated LFTs. Rhabdomyolysis: * CK > 100,000 on admission labs * Multiple NSS bolus and continuous NSS @ 250cc/hr (eventual switch to 1/2NSS for last bag of IVF given Na 146 on AM BMP) * CK trended down --> 92k --> 77k --> 43k * Liver functions continued to improve with continued IVF and oral intake * Creatinine remained stable, urine changed from brown to clear/yellow * No s/sx compartment syndrome * Did not require any antiemetics or pain control * NSR on telemetry and was downgraded to medical status * Instructed patient to avoid heavy lifting/exercise for 3-4 weeks and to avoid any kind of supplementation at all * To have repeat Ck/CMP in 2 days and have f/u with S services for post- discharge monitoring Elevated LFTs: * On admission with AST 1426, ALT 313, normal total bilirubin and alk phos. * Trending down as rhabdo improving -- AST 798, AST 317 alk phos 42 * Repeat levels in 2 days outpatient DVT prophylaxis: Low risk given age -- encouraged ambulation SCDs while in bed Discharged this afternoon with f/u with S on Tuesday (2) Elevated LFTs: Total Time Total Time Spent Total Time Spent (In Minutes): 60 Discharge Plan Discharge Items Patient Disposition: Home - Self-Care Reason For Visit: RHABDOMYOLYSIS Discharge Diagnosis: Rhabdomyolysis Condition on Discharge: Good Goals: You have been hospitalized for an acute medical problem. During your stay at [facility], we have made an effort to correct the problem that brought you to the hospital while keeping you as comfortable as possible. Medications were used to bring your condition under control and your discharge instructions will include directions for any medications you should take after leaving the hospital. Please make sure you see your Primary Care Provider as part of your follow up plan. Activity: As commented below Activity Comment: no heavy lifting/strenuous exercise for at least 3-4 weeks Non-emergency contact: Primary Care Provider Call non-emergency contact if: you have any medication questions, your symptoms worsen and your pain is concerning for you Follow-up/Referrals: [facility] [Primary Care Provider] - 03/31/20 11:00 am Diet: Regular Ambulatory Orders: Creatine Kinase (Timed) Timeframe: 2 Days Location: Determined by Patient Ordered By: Katerin Howell Comprehensive Metabolic Panel (Routine) Timeframe: 2 Days Location: Determined by Patient Ordered By: Katerin Howell Addtl Attending Provider Instructions: You have been hospitalized for rhabdomyolysis. As discussed, this is likely due to working out extensively after not having been working out for some time. This puts you at increased risk for kidney injury and you were kept in the hospital and provided with IV fluids and pain control (which you did not end up needing anything for pain). Your CK (measurement of muscle breakdown/injury) was elevated to >100,000 and has been steadily decreasing over the past three days and is currently around 43,000. Your liver enzymes were also elevated secondary to this and have also been improving with resolution of the rhabdomyolysis. Your kidney function has remained stable and it is important for you to continue to push oral fluids to help with complete resolution. Please note, it is VERY important to avoid any heavy lifting over the next 3-4 weeks to prevent recurrence. Also, you should avoid any supplementations during this time. You should follow up with S later this week and have repeat labs which an order will be provided to you to have done to check your CK as well as chemistries to ensure liver functions normalize and to monitor your progress post-discharge. Please return to the emergency department with any darkening of your urine, increased pain or swelling, fever, or for any other symptoms that are concerning for you. It has been a pleasure being a part of the medical team providing for you while you have been in the hospital. Take care! Pending Studies at Discharge: No Stand-Alone Forms: My [facility] [address], Work/School Release (Inpt) Medications and DC Order Prescriptions: No Action No Known Home Medications RF: 0 Discharge Orders: Discharge Order (Routine); Ordered 03/26/20 Ordered By: Katerin Howell Admission Data Admit Date/Time: 03/23/20 21:05 Attending Provider: Keith Green Admit Provider: Tamiko Briceño Primary Care Provider: [facility] Other Providers: Manjeet Berry Other Interventions: Discharge Summary Assessment (RN) Last Done: 03/26/20 13:18 Supervising Physician Co-Signing Physician Notes Patient was seen and examined independently I discussed the case with Katerin Howell PAC I reviewed pertinent the plan of care and agree with the plan of care. Patient has rhabdomyolysis. Urine is now clear. Patient is safe for discharge given short myoglobin halflife. Explained to patient to abstain from exercising for next 3-4 weeks. I reviewed above note and discussed discharge plan wth APC and patient. Coding Level of Care Code D/C Day Management >30 mins Diagnoses Rhabdomyolysis M62.82 Elevated LFTs R79.89
[2020-03-26] MEDS ORDERED: SODIUM CHLORIDE 0.45 % 500 ML IV ONE (08:31)
--- NOTE | 2020-03-31 22:24 | Billing Data ---
Date of Service March 31, 2020 Coding Level of Care Code 18472 Initial Inpt Care Lvl 2
== END 2020-03-26 14:40 | disposition home or self-care (01) | DRG 558 ==
LOC: ED 17:00 → SUATTDRO 21:05 → 2N 21:05